=== PATIENT | female | born 1995 | race Caucasian/White ===

== ENCOUNTER 2017-09-24 20:35 | Emergency (ER) | payer MEDICAID ==
[~2017-09-24] VITALS: Ht 167.6 cm; Wt 113.4 kg
[2017-09-24 21:02] VITALS: BP_SYST 127
--- NOTE | 2017-09-24 21:02 | NUR ---
Patient triaged and placed in waiting room. VSS and patient appears in no acute distress at this time. Accompanied by self, awaiting available bed, and MD notified of need for MSE.
--- NOTE | 2017-09-24 21:55 | NUR ---
Called patient. No response from patient. Patient not in waiting room. Will try again
--- NOTE | 2017-09-24 22:00 | NUR ---
Called patient. No response from patient. Patient not in waiting room. Will try again
--- NOTE | 2017-09-24 22:05 | NUR ---
Called patient. No response from patient. Patient not in waiting room.
== END 2017-09-24 22:05 | disposition left against medical advice (07) ==
LOC: SED 20:35
DX: R51 Headache (principal); J02.9 Acute pharyngitis, unspecified; Z53.21 Procedure and treatment not carried out due to patient leaving prior to being seen by health care provider

== ENCOUNTER 2023-09-28 21:54 | Emergency (ER) | payer MEDICAID, OTHER ==
[~2023-09-28] VITALS: Ht 165.1 cm; Wt 127.0 kg
[2023-09-28 21:57] VITALS: BP_SYST 125; PULSE 85; RESP 14; TEMP 97; O2SAT 99
[2023-09-28] MEDS: KETOROLAC TROMETHAMINE 30 MG VIAL IM ONE (22:53)
[2023-09-28 23:12] LABS: BASOPHILS % (AUTO) 0.3 % (0.0-2.0); EOSINOPHILS # (AUTO) 0.1 K/uL (0.0-0.4); EOSINOPHILS % (AUTO) 1.2 % (0.0-4.0); HEMATOCRIT 38.9 % (36-48); HEMOGLOBIN 13.2 g/dL (12.0-16.0); LYMPHOCYTES # (AUTO) 2.5 K/uL (1.0-5.5); LYMPHOCYTES % (AUTO) 29.6 % (20.5-51.5); MEAN CORPUSCULAR HEMOGLOBIN 30 pg (27-31); MEAN CORPUSCULAR HGB CONC 34 % (32-36); MEAN CORPUSCULAR VOLUME 89 fL (79.0-98.0); MONOCYTES # (AUTO) 0.6 K/uL (0.0-1.0); MONOCYTES % (AUTO) 7.4 % (1.7-9.3); NEUTROPHILS # (AUTO) 5.1 K/uL (1.8-7.7); NEUTROPHILS % (AUTO) 61.5 % (40.0-70.0); PLATELET COUNT (AUTO) 267 K/uL (130-430); RED BLOOD CELL COUNT(AUTO) 4.38 MIL/uL (4.2-6.2); RED CELL DISTRIBUTION WIDTH 14.4 % (9.0-15.0); WHITE BLOOD COUNT (AUTO) 8.3 K/uL (4.8-10.8)
[2023-09-28 23:17] LABS: CALCIUM 9.7 mg/dL (8.4-11.0); CREATININE 0.81 mg/dL (0.55-1.30); POTASSIUM 3.6 mmol/L (3.5-5.1)
[2023-09-28 23:21] LABS: PHOSPHORUS 3.3 mg/dL (2.7-4.5)
[2023-09-28] MEDS ORDERED: NEU300 PO (23:44)
[2023-09-28] MEDS ORDERED: NAPR-1172 PO (23:44)
[2023-09-28] MEDS ORDERED: ACET-2634 PO (23:44)
[2023-09-28 23:56] VITALS: BP_SYST 118; PULSE 84; RESP 18; TEMP 97; O2SAT 98
== END 2023-09-28 23:56 | disposition home or self-care (01) ==
LOC: SED 21:54
DX: G54.0 Brachial plexus disorders (principal); R20.2 Paresthesia of skin; Z79.899 Other long term (current) drug therapy
CPT/HCPCS: 99284; 80048; 83735; 84100; 85025; 36415; 73030; 96372; J1885

== ENCOUNTER 2023-12-13 00:02 | Emergency (ER) | payer OTHER ==
[~2023-12-13] VITALS: Ht 165.1 cm; Wt 131.5 kg
[~2023-12-13 00:02] MED LIST: ACET-2634 PO; NAPR-1172 PO; NEU300 PO
[2023-12-13 00:27] VITALS: BP_SYST 170; PULSE 75; RESP 16; TEMP 97.7; O2SAT 99
[2023-12-13] MEDS ORDERED: LIDO1ADH22 TP (01:18)
[2023-12-13] MEDS: LIDOCAINE PATCH 5% 1 EA TP ONE (01:48)
[2023-12-13] MEDS: KETOROLAC TROMETHAMINE 30 MG VIAL IM ONE (01:48)
[2023-12-13] MEDS: CYCLOBENZAPRINE HCL 10 MG TABLET (FLEXERIL) PO ONE (01:48)
[2023-12-13 02:30] VITALS: RESP 16; TEMP 97.7
[2023-12-13 02:56] VITALS: BP_SYST 130; PULSE 88; O2SAT 98
== END 2023-12-13 02:57 | disposition home or self-care (01) ==
LOC: SED 00:02
DX: S16.1XXA Strain of muscle, fascia and tendon at neck level, initial encounter (principal); R03.0 Elevated blood-pressure reading, without diagnosis of hypertension; V89.2XXA Person injured in unspecified motor-vehicle accident, traffic, initial encounter; Y93.89 Activity, other specified; Y92.89 Other specified places as the place of occurrence of the external cause; Y99.8 Other external cause status
CPT/HCPCS: 99283; 96372; J1885

== ENCOUNTER 2024-02-03 18:56 | Emergency (ER) | payer SELFPAY ==
[~2024-02-03 18:56] MED LIST changes: +LIDO1ADH22 TP
[2024-02-03 19:02] VITALS: PULSE 95; RESP 16; TEMP 98; O2SAT 97
[2024-02-03] MEDS ORDERED: ACET1TAB93 PO (19:20)
[2024-02-03] MEDS ORDERED: DOXY100C5 PO (19:20)
[2024-02-03 19:30] VITALS: O2SAT 98
[2024-02-03 19:48] VITALS: BP_SYST 150; PULSE 84; RESP 20; TEMP 98.6
== END 2024-02-03 19:40 | disposition home or self-care (01) ==
LOC: SED 18:56
DX: H60.92 Unspecified otitis externa, left ear (principal); Z79.2 Long term (current) use of antibiotics; Z79.899 Other long term (current) drug therapy
CPT/HCPCS: 99283